=== PATIENT | male | born 1995 | race Caucasian/White ===

== ENCOUNTER 2018-02-21 20:54 | Emergency (ER) | payer BC ==
--- NOTE | 2018-02-21 22:05 | EDM.PDOC ---
ED HPI GENERAL MEDICAL PROBLEM - General Chief Complaint: General Stated Complaint: PAIN IN RIBS Time Seen by Provider: 02/21/18 21:47 Source of Information: Reports: Patient, RN Notes Reviewed History Limitations: Reports: No Limitations - History of Present Illness INITIAL COMMENTS - FREE TEXT/NARRATIVE: Dropped off by friends Chief complaint Left-sided chest pain History of present illness 23-year-old male tripped on a outdoor chair last night and ended twirling and landing on his left side on a landscape rock. He had immediate pain and his friends her to crack sound. He had trouble sleeping last night. Pain is aggravated by deep breath in by coughing. He attempts to clear his throat rather than cough. Sometimes hold his chest and the left side to diminish the pain. At rest he feels okay but the pain did wake up during the night. Pain radiates upwards towards the side of the neck and hours into the abdomen. No nausea or vomiting No fever No other injuries History of left shoulder surgery and of congenital hearing loss right ear Left Chest Pain Score (Numeric/FACES): 8 - Related Data Allergies Allergy/AdvReac Type Severity Reaction Status Date / Time No Known Allergies Allergy Verified 02/21/18 21:42 Home Meds: Home Meds NK [No Known Home Meds] 02/21/18 [History] Past Medical History HEENT History: Reports: Hard of Hearing, Other (See Below) Other HEENT History: deaf in right ear Psychiatric History: Reports: ADD, Anxiety - Past Surgical History Musculoskeletal Surgical History: Reports: Shoulder Surgery Social & Family History - Tobacco Use Smoking Status *Q: Never Smoker - Caffeine Use Caffeine Use: Reports: None - Recreational Drug Use Recreational Drug Use: No ED ROS GENERAL - Review of Systems Review Of Systems: See Below Constitutional: Reports: No Symptoms HEENT: Reports: No Symptoms Respiratory: Reports: Pleuritic Chest Pain, Cough (Mild) Cardiovascular: Reports: Chest Pain. Denies: Dyspnea on Exertion, Edema, Lightheadedness, Palpitations GI/Abdominal: Reports: No Symptoms : Reports: No Symptoms Musculoskeletal: Reports: No Symptoms Skin: Reports: No Symptoms Neurological: Reports: No Symptoms Immunologic: Reports: No Symptoms ED EXAM, GENERAL - Physical Exam Exam: See Below Exam Limited By: No Limitations General Appearance: Alert, No Apparent Distress, Other (Healthy-appearing, vital signs normal except for mild elevation blood pressure, no difficulty speaking or breathing but pain on deep breath) Eye Exam: Bilateral Eye: EOMI, Normal Inspection Ears: Normal External Exam Nose: Normal Inspection Throat/Mouth: Normal Inspection Head: Atraumatic, Normocephalic Respiratory/Chest: No Respiratory Distress, Lungs Clear, Normal Breath Sounds, Other (Chest tenderness left side lower left anterior ribs) Cardiovascular: Normal Peripheral Pulses, Regular Rate, Rhythm Back Exam: Normal Inspection Extremities: Normal Inspection Neurological: Alert, Oriented, No Motor/Sensory Deficits Psychiatric: Normal Affect, Normal Mood Skin Exam: Warm, Dry, Intact, Normal Color, No Rash Course - Vital Signs Last Recorded V/S: Last Vital Signs Temp 35.8 C 02/21/18 21:48 Pulse 87 02/21/18 21:48 Resp 18 02/21/18 21:48 BP 146/90 H 02/21/18 21:48 Pulse Ox 100 02/21/18 21:48 - Re-Assessments/Exams Free Text/Narrative Re-Assessment/Exam: 02/21/18 22:02 23-year-old male who injured the left side of his chest and a fall onto a rock last night. Point tenderness No respiratory compromise although deep breath, and coughing causes pain, he is breathing more shallowly Symptoms and findings are consistent with rib fracture differential diagnosis being rib or chest wall contusion. Symptomatically treatment He declined prescription analgesics Get rechecked if worsening symptoms Departure - Departure Time of Disposition: 22:03 Disposition: Home, Self-Care 01 Condition: Good Clinical Impression: Fracture, rib Qualifiers: Encounter type: initial encounter Rib fracture type: single rib Fracture type: closed Laterality: left Qualified Code(s): S22.32XA - Fracture of one rib, left side, initial encounter for closed fracture - Discharge Information Instructions: Rib Fracture Referrals: PCP,None [Primary Care Provider] - Forms: ED Department Discharge, ED Return to Work/School Form Additional Instructions: Symptomatic treatment with pain medication such as acetaminophen or ibuprofen or naproxen as needed Topical application of cold or heat can also be helpful No limitation on activities, but the pain limits which you can do. Healing will take several weeks. Get rechecked if you develop bad cough, difficulty breathing, short of breath, or fever
== END 2018-02-21 22:19 | disposition home or self-care (01) ==
LOC: JP.ED 20:54
DX: S22.32XA Fracture of one rib, left side, initial encounter for closed fracture (principal); W01.0XXA Fall on same level from slipping, tripping and stumbling without subsequent striking against object, initial encounter
CPT/HCPCS: 99283